=== PATIENT | male | born 1985 | race Hispanic/Latino ===

== ENCOUNTER 2024-02-06 19:35 | Emergency (ER) | payer OTHER ==
[~2024-02-06] VITALS: Ht 170.2 cm; Wt 147.4 kg
[2024-02-06 19:39] VITALS: BP 167/114; PULSE 98; RESP 20; TEMP 98.3
[2024-02-06] MEDS: HYDROcodone/APAP 5/325 1 TAB TABLET PO ONE (19:55)
[2024-02-06] MEDS ORDERED: IBUP-2077 PO (21:51)
== END 2024-02-06 21:59 | disposition home or self-care (01) ==
LOC: EDH 19:35
DX: M23.92 Unspecified internal derangement of left knee (principal)
CPT/HCPCS: 29505; 73562